=== PATIENT | male | born 1980 | race African-American/Black ===

== ENCOUNTER 2017-07-08 06:30 | Emergency (ER) | payer MEDICAID ==
[~2017-07-08] VITALS: Ht 180.3 cm; Wt 88.0 kg
[~2017-07-08 06:30] MED LIST: HYDR-3534 PO; SILV1CRE20 TOPICAL
[2017-07-08 06:34] VITALS: BP 135/94; PULSE 86; RESP 16; TEMP 97.5; O2SAT 99
[2017-07-08] MEDS ORDERED: ONDANSETRON HCL 4 MG/2 ML VIAL IV PUSH ONE (07:15)
[2017-07-08] MEDS ORDERED: ASPIRIN 81 MG CHEW TAB PO ONE (07:15)
[2017-07-08] MEDS ORDERED: SODIUM CHLORIDE 0.9% FLUSH 10 ML FLUSH IVF PRN (07:15)
--- NOTE | 2017-07-08 07:30 | PD ---
HPI Chief Complaint: Chest Pain Time Seen by Provider: 07:06 Travel History International Travel<30 days: No Contact w/Intl Traveler<30days: No Traveled to known affect area: No History of Present Illness HPI Patient is a 37 year old male who comes in complaining of chest pain with some shortness of breath and pain to his right side. He says this has been going on for the past week, but today his girlfriend convinced him to come in to be seen. He says the pain has been coming and going. He is mostly short of breath when he is exerting himself. He says he had the flu about a month ago, got better for 2 weeks, and now seems to be coughing again. He denies fever or chills. He quit smoking 2 years ago. He denies any cocaine or stimulant use. He has not taken anything for his symptoms. Severity is mild to moderate. PFSH Past Medical History Medical History: Denies Significant Hx Diminished Hearing: No Immunizations Current: Yes Tetanus Vaccination: < 5 Years Influenza Vaccination: No Past Surgical History Surgical History: No Previous Surgery Social History Alcohol Use: No Tobacco Use: No (quit 12/2014) Substance Use: No Allergies-Medications (Allergen,Severity, Reaction): Coded Allergies: No Known Allergies (Verified Adverse Reaction, Unknown, 07/08/17) Reported Meds & Prescriptions Reported Meds & Active Scripts Active Lortab (Hydrocodone-Acetaminophen) 7.5-325 Mg Tab 1 Tab PO Q6H PRN Silvadene Topical (Silver Sulfadiazine) 1 % Cream 1 Applic TOPICAL BID Review of Systems Except as stated in HPI: all other systems reviewed are Neg General / Constitutional: No: Fever, Chills HENT: No: Headaches, Lightheadedness Cardiovascular: Positive: Chest Pain or Discomfort Respiratory: Positive: Shortness of Breath Gastrointestinal: Positive: Nausea, Vomiting, Abdominal Pain Musculoskeletal: No: Myalgias, Edema Skin: No Rash, No Change in Pigmentation Neurologic: No: Weakness, Dizziness Physical Exam Narrative GENERAL: Awake and alert, in no acute distress. SKIN: Warm and dry. No lesions or signs of infection. HEAD: Atraumatic. Normocephalic. EYES: Pupils equal and round. No scleral icterus. No injection or drainage. ENT: Mucous membranes pink and moist. NECK: Trachea midline. No JVD. CARDIOVASCULAR: Regular rate and rhythm. RESPIRATORY: No accessory muscle use. Clear to auscultation. Breath sounds equal bilaterally. GASTROINTESTINAL: Abdomen soft, non-tender, nondistended. MUSCULOSKELETAL: Extremities without clubbing, cyanosis, or edema. No obvious deformities. NEUROLOGICAL: Awake and alert. No obvious cranial nerve deficits. Motor grossly within normal limits. Five out of 5 muscle strength in the arms and legs. Normal speech. PSYCHIATRIC: Appropriate mood and affect; insight and judgment normal. Data Data Last Documented VS Vital Signs Date Time Temp Pulse Resp B/P (MAP) Pulse Ox O2 Delivery O2 Flow Rate FiO2 07/08/17 10:05 69 18 121/78 (92) 100 Room Air 07/08/17 06:34 97.5 Orders Orders Ckmb (Isoenzyme) Profile (07/08/17 07:12) Complete Blood Count With Diff (07/08/17 07:12) Comprehensive Metabolic Panel (07/08/17 07:12) Prothrombin Time / Inr (Pt) (07/08/17 07:12) Act Partial Throm Time (Ptt) (07/08/17 07:12) Troponin I (07/08/17 07:12) Lipase (07/08/17 07:12) Chest, Single Ap (07/08/17 07:12) Ecg Monitoring (07/08/17 07:12) Bilateral Bp Monitoring (07/08/17 07:12) Iv Access Insert/Monitor (07/08/17 07:12) Oximetry (07/08/17 07:12) Oxygen Administration (07/08/17 07:12) Aspirin Chew (Aspirin Chew) (07/08/17 07:15) Sodium Chloride 0.9% Flush (Ns Flush) (07/08/17 07:15) Ondansetron Inj (Zofran Inj) (07/08/17 07:15) Electrocardiogram (07/08/17 06:49) CKMB (07/08/17 07:20) CKMB% (07/08/17 07:20) Sodium Chlor 0.9% 1000 Ml Inj (Ns 1000 M (07/08/17 09:45) Labs Laboratory Tests Test 07/08/17 07:20 White Blood Count 8.6 TH/MM3 Red Blood Count 5.19 MIL/MM3 Hemoglobin 14.9 GM/DL Hematocrit 44.1 % Mean Corpuscular Volume 85.0 FL Mean Corpuscular Hemoglobin 28.8 PG Mean Corpuscular Hemoglobin Concent 33.9 % Red Cell Distribution Width 14.1 % Platelet Count 283 TH/MM3 Mean Platelet Volume 7.8 FL Neutrophils (%) (Auto) 39.6 % Lymphocytes (%) (Auto) 46.4 % Monocytes (%) (Auto) 10.2 % Eosinophils (%) (Auto) 3.0 % Basophils (%) (Auto) 0.8 % Neutrophils # (Auto) 3.4 TH/MM3 Lymphocytes # (Auto) 4.0 TH/MM3 Monocytes # (Auto) 0.9 TH/MM3 Eosinophils # (Auto) 0.3 TH/MM3 Basophils # (Auto) 0.1 TH/MM3 CBC Comment DIFF FINAL Differential Comment Prothrombin Time 10.1 SEC Prothromb Time International Ratio 1.0 RATIO Activated Partial Thromboplast Time 28.5 SEC Blood Urea Nitrogen 10 MG/DL Creatinine 1.37 MG/DL Random Glucose 108 MG/DL Total Protein 8.7 GM/DL Albumin 4.0 GM/DL Calcium Level 8.8 MG/DL Alkaline Phosphatase 69 U/L Aspartate Amino Transf (AST/SGOT) 34 U/L Alanine Aminotransferase (ALT/SGPT) 32 U/L Total Bilirubin 0.3 MG/DL Sodium Level 140 MEQ/L Potassium Level 4.0 MEQ/L Chloride Level 106 MEQ/L Carbon Dioxide Level 26.8 MEQ/L Anion Gap 7 MEQ/L Estimat Glomerular Filtration Rate 70 ML/MIN Total Creatine Kinase 626 U/L Creatine Kinase MB 1.4 NG/ML Creatine Kinase MB % 0.2 % Troponin I LESS THAN 0.02 NG/ML Lipase 545 U/L [facility] Medical Decision Making Medical Screen Exam Complete: Yes Emergency Medical Condition: Yes Medical Record Reviewed: Yes Interpretation(s) ECG shows NSR at 92, no ST elevation or depression Differential Diagnosis ACS versus pancreatitis versus GERD versus dehydration Narrative Course Patient is a 37-year-old male who comes in with complaints of chest pain, shortness of breath, side pain. Exam shows no acute abnormalities. IV sevens, labs sent. Labs show a lipase of 545. Troponin is negative. Chest x-ray shows no acute abnormalities. Last 24 hours Impressions Chest X-Ray 07/08/17 0712 Signed Impressions: Service Date/Time: Saturday, July 08, 2017 07:29 - CONCLUSION: 1. No acute cardiopulmonary findings. Stable compared to previous dated 04/19/14. Anthony Bess MD Patient given IV fluids and aspirin. I advised that he should stay for continued management of his chest pain and pancreatitis. However, he says that he is unable to stay due to childcare issues. He verbalizes understanding of the risks of leaving AGAINST MEDICAL ADVICE. He is advised to have only clear liquids today and to follow-up with a primary doctor. Advised return anytime for any worsening symptoms. Patient has elected to sign out AMA. AMA: The risks of leaving against medical advice without further evaluation treatment were discussed with the patient. These risks include cardiac dysfunction, cardiac dysrhythmia, possible heart attack, possible stroke or . The patient indicated understanding of these risks and appeared to have the capacity to make this decision. Diagnosis Primary Impression: Pancreatitis Qualified Codes: K85.90 - Acute pancreatitis without necrosis or infection, unspecified Additional Impression: Chest pain Qualified Codes: R07.9 - Chest pain, unspecified Patient Instructions: General Instructions, Pancreatitis (ED) Disposition: 07 AGAINST MEDICAL ADVICE Trista Muñoz MD Jul 08, 2017 07:29
[2017-07-08 07:33] VITALS: BP 133/86; PULSE 73; RESP 15; O2SAT 99
--- NOTE | 2017-07-08 07:47 | EKG ---
Date Performed: 07/08/2017 Time Performed: 06:49:57 PTAGE: 37 years EKG: Sinus rhythm NONSPECIFIC T-WAVE ABNORMALITY BORDERLINE ECG NO PREVIOUS TRACING DOCTOR: Theo Yao Interpretating Date/Time 07/08/2017 07:46:40
--- NOTE | 2017-07-08 08:11 | RADRPT ---
EXAM DATE/TIME: 07/08/2017 07:29 [facility] COMPARISON: CHEST PA & LAT, April 19, 2014, 9:38. INDICATIONS : Chest pain for 1 week. MEDICAL HISTORY : None. SURGICAL HISTORY : None. ENCOUNTER: Initial ACUITY: 1 week PAIN SCORE: 6/10 LOCATION: Bilateral chest FINDINGS: A single view of the chest demonstrates the lungs to be symmetrically aerated without evidence of mas s, infiltrate or effusion. The cardiomediastinal contours are unremarkable. Osseous structures are intact. CONCLUSION: 1. No acute cardiopulmonary findings. Stable compared to previous dated 04/19/14. Anthony Bess MD on July 08, 2017 at 8:09 Board Certified Radiologist. This report was verified electronically.
[2017-07-08 08:25] LABS: AUTOMATED NEUTROPHIL # 3.4 TH/MM3 (1.8-7.7); BASOPHIL # 0.1 TH/MM3 (0-0.2); BASOPHIL % 0.8 % (0.0-2.0); EOSINOPHIL # 0.3 TH/MM3 (0-0.4); HEMATOCRIT 44.1 % (39.0-51.0); HEMOGLOBIN 14.9 GM/DL (13.0-17.0); LYMPH % 46.4 % (9.0-44.0); MEAN CORPUSCULAR HEMOGLOBIN 28.8 PG (27.0-34.0); MEAN CORPUSCULAR HGB CONC 33.9 % (32.0-36.0); MEAN PLATELET VOLUME 7.8 FL (7.0-11.0); MONO % 10.2 % (0.0-8.0); MONOCYTE # 0.9 TH/MM3 (0-0.9); NEUT % 39.6 % (16.0-70.0); PLATELET COUNT 283 TH/MM3 (150-450); RED BLOOD COUNT 5.19 MIL/MM3 (4.50-5.90); RED CELL DISTRIBUTION WIDTH 14.1 % (11.6-17.2); WHITE BLOOD COUNT 8.6 TH/MM3 (4.0-11.0)
[2017-07-08 08:34] LABS: PROTHROMBIN TIME - PATIENT 10.1 SEC (9.8-11.6)
[2017-07-08 08:54] LABS: ALKALINE PHOSPHATASE 69 U/L (45-117); ALT (GPT) 32 U/L (12-78); AST (GOT) 34 U/L (15-37); BICARBONATE 26.8 MEQ/L (21.0-32.0); BLOOD UREA NITROGEN 10 MG/DL (7-18); CALCIUM 8.8 MG/DL (8.5-10.1); CHLORIDE 106 MEQ/L (98-107); CREATININE 1.37 MG/DL (0.60-1.30); GLOMERULAR FILTRATION RATE 70 ML/MIN (>89); GLUCOSE,RANDOM 108 MG/DL (74-106); SODIUM (NA) 140 MEQ/L (136-145); TOTAL BILIRUBIN ADULT 0.3 MG/DL (0.2-1.0); TOTAL PROTEIN 8.7 GM/DL (6.4-8.2); TROPONIN I LESS THAN 0.02 NG/ML (0.02-0.05)
[2017-07-08] MEDS ORDERED: SODIUM CHLOR 0.9% 1000 ML INJ 1,000 ML IV ONE (09:45)
[2017-07-08 10:05] VITALS: BP 121/78; PULSE 69; RESP 18; O2SAT 100
== END 2017-07-08 10:40 | disposition left against medical advice (07) ==
LOC: NEPE 06:30
DX: K85.90 Acute pancreatitis without necrosis or infection, unspecified (principal); R07.9 Chest pain, unspecified; R94.31 Abnormal electrocardiogram [ECG] [EKG]; Z87.891 Personal history of nicotine dependence
CPT/HCPCS: 71045; 80053; 82550; 82552; 83690; 84484; 85025; 85610; 85730; 93005; 96374; 99285; J2405; J7030

== ENCOUNTER 2017-07-10 06:36 | Emergency (ER) | payer MEDICAID ==
[~2017-07-10] VITALS: Ht 182.9 cm; Wt 82.0 kg
[2017-07-10 06:38] VITALS: BP 143/86; PULSE 80; RESP 16; TEMP 97.2; O2SAT 98
[2017-07-10] MEDS ORDERED: SODIUM CHLOR 0.9% 1000 ML INJ 1,000 ML IV SCH (07:10)
[2017-07-10] MEDS ORDERED: SODIUM CHLORIDE 0.9% FLUSH 10 ML FLUSH IV FLUSH PRN (07:15)
[2017-07-10] MEDS ORDERED: ONDANSETRON HCL 4 MG/2 ML VIAL IVP ONE (07:15)
[2017-07-10] MEDS ORDERED: KETOROLAC TROMETHAMINE 30 MG/ML (IVP) VIAL IVP ONE (07:15)
--- NOTE | 2017-07-10 07:24 | PD ---
HPI Chief Complaint: Abdominal Pain Time Seen by Provider: 07:10 Travel History International Travel<30 days: No Contact w/Intl Traveler<30days: No Traveled to known affect area: No History of Present Illness HPI This is a 37-year-old male who presents today with complaints of upper abdominal pain. Patient states that he was seen here 2 days ago for the same thing. At that time they noted him to have pancreatitis. He reports that they wanted to admit him however he had family duties that he had to for fell and could not be admitted. He told them that he would come back if the pain continued. He states the pain has continued. He denies it getting worse. He denies it getting better. States that he has been just drinking fluids and eating fruits. He states that after eating, he reports the pain does get worse. There is no reported fevers, chills. There is nausea with no vomiting. There is no diarrhea or loose stools. There is no dark colored urine. He has no history of heavy alcohol use and in fact does not drink alcohol. There is no history of diabetes. He does have family history of diabetes. PFSH Past Medical History Diminished Hearing: No Immunizations Current: Yes Tetanus Vaccination: < 5 Years Influenza Vaccination: No Social History Alcohol Use: No Tobacco Use: No (quit 12/2014) Substance Use: No Allergies-Medications (Allergen,Severity, Reaction): Coded Allergies: No Known Allergies (Verified Adverse Reaction, Unknown, 07/10/17) Reported Meds & Prescriptions Reported Meds & Active Scripts Active Zantac (Ranitidine HCl) 150 Mg Tab 150 Mg PO BID Review of Systems Except as stated in HPI: all other systems reviewed are Neg General / Constitutional: No: Fever, Chills HENT: No: Headaches, Lightheadedness Cardiovascular: No: Chest Pain or Discomfort, Palpitations Respiratory: No: Cough, Shortness of Breath Gastrointestinal: Positive: Nausea, Abdominal Pain, No: Vomiting, Diarrhea Genitourinary: No: Dysuria, Other (No dark colored urine) Skin: No Rash, No Lesions Neurologic: No: Weakness, Headache Endocrine: No: Polyuria, Polydipsia Physical Exam Narrative GENERAL: Well-nourished, well-developed patient, in no acute respiratory distress. SKIN: Focused skin assessment warm/dry. HEAD: Normocephalic/atraumatic. EYES: No scleral icterus. No injection or drainage. NECK: Supple, trachea midline. CARDIOVASCULAR: Regular rate and rhythm without murmurs, gallops, or rubs. RESPIRATORY: Breath sounds equal bilaterally. No accessory muscle use. GASTROINTESTINAL: Abdomen soft, nondistended. He has subjective tenderness to palpation in his epigastrium. No rebound or guarding. MUSCULOSKELETAL: No cyanosis, or edema. BACK: Nontender without obvious deformity. No CVA tenderness. NEUROLOGICAL: Awake and alert. Cranial nerves II through XII intact. Motor grossly within normal limits. Five out of 5 muscle strength in all muscle groups. Normal speech. Data Data Last Documented VS Vital Signs Date Time Temp Pulse Resp B/P (MAP) Pulse Ox O2 Delivery O2 Flow Rate FiO2 07/10/17 07:42 77 18 98 Room Air 07/10/17 06:38 97.2 Orders Orders Complete Blood Count With Diff (07/10/17 07:10) Comprehensive Metabolic Panel (07/10/17 07:10) Lipase (07/10/17 07:10) Urinalysis - C+S If Indicated (07/10/17 07:10) Iv Access Insert/Monitor (07/10/17 07:10) Ecg Monitoring (07/10/17 07:10) Oximetry (07/10/17 07:10) Ondansetron Inj (Zofran Inj) (07/10/17 07:15) Sodium Chlor 0.9% 1000 Ml Inj (Ns 1000 M (07/10/17 07:10) Sodium Chloride 0.9% Flush (Ns Flush) (07/10/17 07:15) Ketorolac Inj (Toradol Inj) (07/10/17 07:15) Labs Laboratory Tests Test 07/10/17 07:18 07/10/17 07:22 White Blood Count 6.5 TH/MM3 Red Blood Count 5.08 MIL/MM3 Hemoglobin 14.4 GM/DL Hematocrit 42.3 % Mean Corpuscular Volume 83.2 FL Mean Corpuscular Hemoglobin 28.4 PG Mean Corpuscular Hemoglobin Concent 34.1 % Red Cell Distribution Width 13.7 % Platelet Count 294 TH/MM3 Mean Platelet Volume 7.5 FL Neutrophils (%) (Auto) 46.2 % Lymphocytes (%) (Auto) 41.0 % Monocytes (%) (Auto) 9.7 % Eosinophils (%) (Auto) 2.4 % Basophils (%) (Auto) 0.7 % Neutrophils # (Auto) 3.0 TH/MM3 Lymphocytes # (Auto) 2.7 TH/MM3 Monocytes # (Auto) 0.6 TH/MM3 Eosinophils # (Auto) 0.2 TH/MM3 Basophils # (Auto) 0.0 TH/MM3 CBC Comment DIFF FINAL Differential Comment Blood Urea Nitrogen 13 MG/DL Creatinine 1.24 MG/DL Random Glucose 101 MG/DL Total Protein 8.5 GM/DL Albumin 3.9 GM/DL Calcium Level 9.0 MG/DL Alkaline Phosphatase 70 U/L Aspartate Amino Transf (AST/SGOT) 27 U/L Alanine Aminotransferase (ALT/SGPT) 31 U/L Total Bilirubin 0.3 MG/DL Sodium Level 138 MEQ/L Potassium Level 3.6 MEQ/L Chloride Level 105 MEQ/L Carbon Dioxide Level 27.6 MEQ/L Anion Gap 5 MEQ/L Estimat Glomerular Filtration Rate 79 ML/MIN Lipase 177 U/L Urine Color YELLOW Urine Turbidity CLEAR Urine pH 6.0 Urine Specific Leon 1.018 Urine Protein NEG mg/dL Urine Glucose (UA) NEG mg/dL Urine Ketones NEG mg/dL Urine Occult Blood NEG Urine Nitrite NEG Urine Bilirubin NEG Urine Urobilinogen 2.0 MG/DL Urine Leukocyte Esterase NEG Urine RBC 1 /hpf Urine WBC LESS THAN 1 /hpf Urine Mucus FEW /lpf Microscopic Urinalysis Comment CULT NOT INDICATED MDM Medical Decision Making Medical Screen Exam Complete: Yes Emergency Medical Condition: Yes Differential Diagnosis Pancreatitis versus gallbladder disease versus liver disease Narrative Course 37-year-old male who presents with complaints of discomfort in his abdomen. Patient states that he was seen 2 days ago and told he had pancreatitis. He states he is back because he was still having discomfort in his epigastrium. Patient states that when he eats he gets discomfort in his epigastrium. His lipase is normal. On reevaluation after having Toradol and Zofran and fluids. Patient states he is discomfort free. He will be placed on Zantac and told to have bland diet. He is instructed to return to be develops any worsening discomfort, fevers chills, or any other reason. He has an appointment with his primary care physician on 29 July. He is instructed to keep that appointment. Diagnosis Primary Impression: Pancreatitis, resolved. Additional Instructions: [place] diet. Return if increased pain, nausea vomiting diarrhea, or any other recent concerns you. Zantac 150 twice daily 30 days. Med/Other Pt SpecificInfo: Prescription(s) given Scripts Ranitidine (Zantac) 150 Mg Tab 150 MG PO BID for Reduce Stomach Acid, #60 TAB 0 Refills Prov: Lazarus Velazquez MD 07/10/17 Disposition: 01 DISCHARGE HOME Condition: Stable Lazarus Velazquez MD Jul 10, 2017 07:24
[2017-07-10 07:42] VITALS: PULSE 77; RESP 18; O2SAT 98
[2017-07-10 07:53] LABS: BASOPHIL % 0.7 % (0.0-2.0); EOSINOPHIL # 0.2 TH/MM3 (0-0.4); EOSINOPHIL % 2.4 % (0.0-4.0); HEMATOCRIT 42.3 % (39.0-51.0); HEMOGLOBIN 14.4 GM/DL (13.0-17.0); LYMPHOCYTE # 2.7 TH/MM3 (1.0-4.8); MEAN CELL VOLUME 83.2 FL (80.0-100.0); MEAN CORPUSCULAR HEMOGLOBIN 28.4 PG (27.0-34.0); MEAN CORPUSCULAR HGB CONC 34.1 % (32.0-36.0); MEAN PLATELET VOLUME 7.5 FL (7.0-11.0); MONO % 9.7 % (0.0-8.0); MONOCYTE # 0.6 TH/MM3 (0-0.9); NEUT % 46.2 % (16.0-70.0); PLATELET COUNT 294 TH/MM3 (150-450); RED BLOOD COUNT 5.08 MIL/MM3 (4.50-5.90); RED CELL DISTRIBUTION WIDTH 13.7 % (11.6-17.2); WHITE BLOOD COUNT 6.5 TH/MM3 (4.0-11.0)
[2017-07-10 08:10] LABS: ALBUMIN 3.9 GM/DL (3.4-5.0); ALT (GPT) 31 U/L (12-78); AST (GOT) 27 U/L (15-37); BICARBONATE 27.6 MEQ/L (21.0-32.0); BLOOD UREA NITROGEN 13 MG/DL (7-18); CHLORIDE 105 MEQ/L (98-107); CREATININE 1.24 MG/DL (0.60-1.30); GLOMERULAR FILTRATION RATE 79 ML/MIN (>89); GLUCOSE,RANDOM 101 MG/DL (74-106); SODIUM (NA) 138 MEQ/L (136-145)
[2017-07-10 08:13] LABS: ALKALINE PHOSPHATASE 70 U/L (45-117); TOTAL BILIRUBIN ADULT 0.3 MG/DL (0.2-1.0); TOTAL PROTEIN 8.5 GM/DL (6.4-8.2)
[2017-07-10 08:14] LABS: BILIRUBIN, URINE NEG (NEG); BLOOD, URINE NEG (NEG); GLUCOSE,URINE NEG (NEG); KETONE, URINE NEG (NEG); MUCUS URINE FEW /lpf (OCC); NITRITE,URINE NEG (NEG); URINE COLOR YELLOW (YELLW/STRAW); URINE LEUKOCYTE ESTERASE NEG (NEG)
[2017-07-10] MEDS ORDERED: ZANT150T2 PO (08:55)
== END 2017-07-10 09:08 | disposition home or self-care (01) ==
LOC: NEPE 06:36
DX: K85.90 Acute pancreatitis without necrosis or infection, unspecified (principal)
CPT/HCPCS: 80053; 81001; 83690; 85025; 96374; 96375; 99284; J1885; J2405; J7030